=== PATIENT | female | born 1955 | race Caucasian/White ===

== ENCOUNTER 2016-12-08 12:00 | Outpatient (CLI) | payer MEDICAID | END 2016-12-08 12:01 | disposition home or self-care (01) | DX: M25.571 Pain in right ankle and joints of right foot (principal); M79.89 Other specified soft tissue disorders; M77.31 Calcaneal spur, right foot ==

== ENCOUNTER 2017-03-10 09:49 | Outpatient (CLI) | payer MEDICAID | END 2017-03-10 09:50 | disposition home or self-care (01) | DX: R53.83 Other fatigue (principal) ==

== ENCOUNTER 2017-09-05 15:25 | Outpatient (CLI) | payer MEDICAID ==
[2017-09-05 16:08] LABS: BASOPHILS % (AUTO) 0.3 %; EOSINOPHILS # (AUTO) 0.2 10^3/uL (0.0-0.7); EOSINOPHILS % (AUTO) 2.2 %; HCT - HEMATOCRIT 42.5 % (37.0-47.0); HGB - HEMOGLOBIN 14.4 g/dL (12.0-16.0); LYMPHOCYTES # (AUTO) 1.8 10^3/uL (1.5-3.5); LYMPHOCYTES % (AUTO) 25.3 %; MEAN CORPUSCULAR HEMOGLOBIN 29.8 pg (27.0-31.0); MEAN CORPUSCULAR HGB CONC 33.9 g/dL (32.0-36.0); MEAN CORPUSCULAR VOLUME 87.8 fL (81.0-99.0); MEAN PLATELET VOLUME 7.8 fL (7.9-10.8); MONOCYTES # (AUTO) 0.4 10^3/uL (0.0-1.0); MONOCYTES % (AUTO) 5.5 %; NEUTROPHILS # (AUTO) 4.8 10^3/uL (1.5-6.6); NEUTROPHILS % (AUTO) 66.7 %; RED BLOOD COUNT 4.84 10^6/uL (4.20-5.40); RED CELL DISTRIBUTION WIDTH 13.3 % (12.0-15.0); UNCORRECTED WHITE BLOOD COUNT 7.2 x10^3/uL; WHITE BLOOD COUNT 7.2 x10^3/uL (4.8-10.8)
[2017-09-05 16:38] LABS: ALBUMIN/GLOBULIN RATIO 1.8 (1.0-2.2); BILIRUBIN,TOTAL 0.6 mg/dL (0.2-1.0); CALCIUM 9.5 mg/dL (8.5-10.3); CREATININE 0.9 mg/dL (0.4-1.0); POTASSIUM 3.8 mmol/L (3.5-5.0); TOTAL PROTEIN 6.7 g/dL (6.7-8.2)
[2017-09-07 19:37] LABS: ANA SCREEN POSITIVE (NEGATIVE)
== END 2017-09-05 15:26 | disposition home or self-care (01) ==
LOC: LAB 15:25
PROVIDERS: ATTEND Nurse Practitioner Family
DX: M25.50 Pain in unspecified joint (principal)
CPT/HCPCS: 80053; 85025; 85651; 86038; 86140; 86430

== ENCOUNTER 2017-11-01 16:12 | Outpatient (CLI) | payer MEDICAID ==
--- NOTE | 2017-11-02 11:12 | XRAY Report ---
TWO-VIEW CHEST: 11/01/2017 COMPARISON: Frontal chest 09/10/2016. INDICATION: Shortness of breath. TECHNIQUE: Two views of the chest. FINDINGS: Clear lungs. No pneumothorax or pleural effusion. Mediastinum unremarkable. IMPRESSION: NEGATIVE CHEST. JOB #: [id number] EXT JOB #: [id number] [facility]
== END 2017-11-01 16:13 | disposition home or self-care (01) ==
LOC: DI.S 16:12
PROVIDERS: ATTEND Nurse Practitioner Family
DX: R06.02 Shortness of breath (principal)
CPT/HCPCS: 71020

== ENCOUNTER 2018-02-09 11:27 | Outpatient (CLI) | payer MEDICAID ==
--- NOTE | 2018-02-09 15:21 | XRAY Report ---
LUMBAR SPINE: 02/09/2018 COMPARISON: None. INDICATION: Low back pain, worsening about 3 months. TECHNIQUE: Two views. FINDINGS: Normal alignment. No evidence of acute fracture. There is mild narrowing of the L1-L2 and L4-L5 disk spaces. There is moderate narrowing of the L2-L3 disk space. There are small anterior osteophytes. Trace anterolisthesis of L4 upon L5 is favored to be degenerative. IMPRESSION: MILD TO MODERATE LUMBAR SPONDYLOSIS, DETAILED ABOVE. TD: 02/09/2018 15:21 [facility]
== END 2018-02-09 11:28 | disposition home or self-care (01) ==
LOC: DI.S 11:27
PROVIDERS: ATTEND Nurse Practitioner Family
DX: M54.5 Low back pain (principal); M47.896 Other spondylosis, lumbar region
CPT/HCPCS: 72100

== ENCOUNTER 2019-07-17 07:46 | Outpatient (CLI) | payer MEDICAID ==
[2019-07-17 08:37] LABS: BASOPHILS % (AUTO) 0.5 %; EOSINOPHILS # (AUTO) 0.2 10^3/uL (0.0-0.7); EOSINOPHILS % (AUTO) 2.5 %; HGB - HEMOGLOBIN 14.6 g/dL (12.0-16.0); LYMPHOCYTES # (AUTO) 1.8 10^3/uL (1.5-3.5); LYMPHOCYTES % (AUTO) 28.9 %; MEAN CORPUSCULAR HEMOGLOBIN 29.7 pg (27.0-31.0); MEAN CORPUSCULAR HGB CONC 32.5 g/dL (32.0-36.0); MEAN CORPUSCULAR VOLUME 91.3 fL (81.0-99.0); MEAN PLATELET VOLUME 9.4 fL (7.9-10.8); MONOCYTES # (AUTO) 0.5 10^3/uL (0.0-1.0); MONOCYTES % (AUTO) 7.4 %; NEUTROPHILS # (AUTO) 3.7 10^3/uL (1.5-6.6); NEUTROPHILS % (AUTO) 60.5 %; PLT - PLATELET COUNT 219 10^3/uL (130-450); RED BLOOD COUNT 4.92 10^6/uL (4.20-5.40); WHITE BLOOD COUNT 6.1 x10^3/uL (4.8-10.8)
[2019-07-17 08:57] LABS: ALBUMIN 4.4 g/dL (3.2-5.5); ALBUMIN/GLOBULIN RATIO 1.6 (1.0-2.2); ALKALINE PHOSPHATASE 67 IU/L (42-121); ALT ALANINE AMINOTRANSFERASE 27 IU/L (10-60); AST ASPARTATE AMINOTRANSFERASE 24 IU/L (10-42); BILIRUBIN,TOTAL 0.7 mg/dL (0.2-1.0); BUN - BLOOD UREA NITROGEN 14 mg/dL (6-20); CALCIUM 9.5 mg/dL (8.5-10.3); CARBON DIOXIDE - CO2 27 mmol/L (21-32); CHLORIDE 103 mmol/L (101-111); CHOL/HDL RATIO 5.4 (<4.4); CHOLESTEROL 275 mg/dL; CREATININE 0.9 mg/dL (0.4-1.0); GFR - MDRD 63 (>89); GLUCOSE 109 mg/dL (70-100); HDL CHOLESTEROL 51 mg/dL; LDL CHOLESTEROL,CALCULATED 188 mg/dL; LDL/HDL RATIO 3.7 (<4.4); SODIUM 140 mmol/L (135-145); TOTAL PROTEIN 7.1 g/dL (6.7-8.2); VLDL CHOLESTEROL 36 mg/dL
[2019-07-17 09:16] LABS: CRP - C-REACTIVE PROTEIN < 1.0 mg/dL (0-1.0)
--- NOTE | 2019-07-18 09:47 | XRAY Report ---
Reason: ARTHRITIS, KNEES, BILATERAL Procedure Date: 07/17/2019 Accession Number: [id number] / [id number] Procedure: XR - Knee 3 View BILAT CPT Code: FULL RESULT: EXAMS: 1. RIGHT KNEE RADIOGRAPHY 2. LEFT KNEE RADIOGRAPHY EXAM DATE:07/17/2019 08:09 AM. CLINICAL HISTORY:Arthritis, knees, bilateral. COMPARISON: None. TECHNIQUE: 3 views each. FINDINGS: Right Knee: Bones: No acute fracture or bony lesion. Multifocal degenerative osteophyte formation. Joints: Mild to moderate narrowing of the medial compartment and lateral aspect of the patellofemoral compartment. Superior patellar calcifications are again seen in part due to enthesophytes and calcifications along the suprapatellar joint space. Trace right knee effusion. Soft Tissues: Normal. No soft tissue swelling. Left Knee: Bones: No acute fracture or bony lesion. Multifocal degenerative osteophyte formation. Joints: Mild to moderate narrowing of the medial compartment and lateral aspect of the patellofemoral compartment. Superior patellar calcifications are again seen in part due to enthesophytes and calcifications along the suprapatellar joint space. Trace left knee effusion. Soft Tissues: Normal. No soft tissue swelling. IMPRESSION: 1. Mild to moderate degenerative changes of the right and left knee. RADIA
== END 2019-07-17 07:47 | disposition home or self-care (01) ==
LOC: DI 07:46
PROVIDERS: ATTEND Nurse Practitioner
DX: M17.0 Bilateral primary osteoarthritis of knee (principal); Z13.9 Encounter for screening, unspecified; M25.50 Pain in unspecified joint; G43.909 Migraine, unspecified, not intractable, without status migrainosus
CPT/HCPCS: 36415; 80053; 80061; 83721; 84443; 85025; 85651; 86140

== ENCOUNTER 2019-09-18 14:30 | Emergency (ER) | payer MEDICAID ==
--- NOTE | 2019-09-18 14:57 | ED Physician Documentation ---
PD HPI CHEST PAIN - Stated complaint Stated Complaint: CP - Chief complaint Chief Complaint: Cardiac - History obtained from History obtained from: Patient - History of Present Illness Timing - onset: Today (64-year-old woman without history of heart disease except for mitral valve prolapse and with really not much in the way of risk factors except for age for the last couple of days has had fleeting right sided jaw pain that is sharp radiating towards the ear. Usually happens at night and last for only seconds at a time. She is also had intermittent but also very short lasting sweats, they are gone by the time she is able to open the window. For the last 3 hours she is had positional sharp left-sided chest pain. The only present when laying flat. She denies pedal edema or calf pain. No cough or hemoptysis. No recent travel.) Review of Systems Ten Systems: 10 systems reviewed and negative Constitutional: reports: Reviewed and negative Cardiac: reports: Chest pain / pressure. 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 - Present Medications Home Medications: Ambulatory Orders Medication Instructions Recorded Confirmed No Known Home Medications 09/10/16 09/10/16 - Allergies Allergies/Adverse Reactions: Allergies Allergy/AdvReac Type Severity Reaction Status Date / Time Sulfa (Sulfonamide Allergy Unknown Verified 09/18/19 14:41 Antibiotics) tetracycline Allergy Unknown Verified 09/18/19 14:41 - Social History Does the pt smoke?: No Smoking Status: Never smoker Does the pt drink ETOH?: Yes Does the pt have substance abuse?: No - Family History Family history: reports: Non contributory - Immunizations Immunizations are current?: Yes - POLST Patient has POLST: No PD ED PE NORMAL - Vitals Vital signs reviewed: Yes - General General: Alert and oriented X 3, No acute distress - HEENT HEENT: PERRL, EOMI - Neck Neck: Supple, no meningeal sign, No bony TTP - Cardiac Cardiac: RRR, No murmur - Respiratory Respiratory: No respiratory distress, Clear bilaterally - Abdomen Abdomen: Normal bowel sounds, Soft, Non tender - Back Back: No CVA TTP, No spinal TTP - Derm Derm: Normal color, Warm and dry - Extremities Extremities: No edema, No calf tenderness / cord - Neuro Neuro: Alert and oriented X 3, Normal speech Results - Vitals Vitals: Vital Signs - 24 hr 09/18/19 09/18/19 09/18/19 14:37 14:47 16:18 Temperature 37.0 C Heart Rate 62 64 63 Respiratory 17 16 20 Rate Blood Pressure 144/70 H 142/87 H 119/65 O2 Saturation 99 99 98 Oxygen O2 Source Room air - EKG (time done) 1440 Rate: Rate (enter#) (59) Rhythm: NSR [place]: RAD Intervals: Normal [place] QRS: Normal Ischemia: Normal ST segments - Labs Labs: Laboratory Tests 09/18/19 09/18/19 09/18/19 15:03 15:03 15:03 WBC 7.5 RBC 4.78 Hgb 14.3 Hct 44.4 MCV 92.9 MCH 29.9 MCHC 32.2 RDW 12.8 Plt Count 209 MPV 9.3 Neut # (Auto) 4.9 Lymph # (Auto) 1.8 [place] # (Auto) 0.6 Eos # (Auto) 0.1 Baso # (Auto) 0.0 Absolute Nucleated RBC 0.00 Nucleated RBC % 0.0 D-Dimer < 200.0 L Sodium 140 Potassium 4.0 Chloride 105 Carbon Dioxide 27 Anion Gap 8.0 BUN 20 Creatinine 1.1 H Estimated GFR (MDRD) 50 L Glucose 99 Calcium 9.8 Total Bilirubin 0.8 AST 22 ALT 21 Alkaline Phosphatase 66 Troponin I High Sens Total Protein 7.3 Albumin 4.5 Globulin 2.8 Albumin/Globulin Ratio 1.6 Lipase 28 09/18/19 09/18/19 15:03 17:10 WBC RBC Hgb Hct MCV MCH MCHC RDW Plt Count MPV Neut # (Auto) Lymph # (Auto) [place] # (Auto) Eos # (Auto) Baso # (Auto) Absolute Nucleated RBC Nucleated RBC % D-Dimer Sodium Potassium Chloride Carbon Dioxide Anion Gap BUN Creatinine Estimated GFR (MDRD) Glucose Calcium Total Bilirubin AST ALT Alkaline Phosphatase Troponin I High Sens < 2.3 L < 2.3 L Total Protein Albumin Globulin Albumin/Globulin Ratio Lipase PD MEDICAL DECISION MAKING - ED course ED course: 64-year-old woman with very atypical chest pain, EKG is nonischemic and delta troponin was negative. Departure - Departure Disposition: 01 Home, Self Care Clinical Impression: Atypical chest pain Condition: Good Record reviewed to determine appropriate education?: Yes Instructions: ED Chest Pain Atypical Unkn Cause Comments: Follow-up with your doctor for consideration for stress testing, return for new worsening or changing symptoms.
--- NOTE | 2019-09-18 15:26 | XRAY Report ---
Reason: chest pain Procedure Date: 09/18/2019 Accession Number: [id number] / [id number] Procedure: XR - Chest 1 View X-Ray CPT Code: 47089 FULL RESULT: EXAM: CHEST RADIOGRAPHY EXAM DATE: 09/18/2019 03:04 PM. CLINICAL HISTORY: Chest pain. COMPARISON: CHEST 2 VIEW PA/LAT 11/01/2017 4:27 PM. TECHNIQUE: 1 view. FINDINGS: Lungs/Pleura: No focal opacities evident. No pleural effusion. No pneumothorax. Mediastinum: Within exam limitations, the cardiomediastinal contour is normal. Other: None. IMPRESSION: Normal single view chest. RADIA
[2019-09-18 15:28] LABS: BASOPHILS % (AUTO) 0.4 %; EOSINOPHILS # (AUTO) 0.1 10^3/uL (0.0-0.7); EOSINOPHILS % (AUTO) 1.7 %; HGB - HEMOGLOBIN 14.3 g/dL (12.0-16.0); LYMPHOCYTES # (AUTO) 1.8 10^3/uL (1.5-3.5); LYMPHOCYTES % (AUTO) 24.3 %; MEAN CORPUSCULAR HEMOGLOBIN 29.9 pg (27.0-31.0); MEAN CORPUSCULAR HGB CONC 32.2 g/dL (32.0-36.0); MEAN CORPUSCULAR VOLUME 92.9 fL (81.0-99.0); MEAN PLATELET VOLUME 9.3 fL (7.9-10.8); MONOCYTES # (AUTO) 0.6 10^3/uL (0.0-1.0); MONOCYTES % (AUTO) 7.6 %; NEUTROPHILS # (AUTO) 4.9 10^3/uL (1.5-6.6); NEUTROPHILS % (AUTO) 65.6 %; PLT - PLATELET COUNT 209 10^3/uL (130-450); RED BLOOD COUNT 4.78 10^6/uL (4.20-5.40); RED CELL DISTRIBUTION WIDTH 12.8 % (12.0-15.0); WHITE BLOOD COUNT 7.5 x10^3/uL (4.8-10.8)
[2019-09-18 15:41] LABS: ALBUMIN 4.5 g/dL (3.2-5.5); ALBUMIN/GLOBULIN RATIO 1.6 (1.0-2.2); BILIRUBIN,TOTAL 0.8 mg/dL (0.2-1.0); CALCIUM 9.8 mg/dL (8.5-10.3); CREATININE 1.1 mg/dL (0.4-1.0); TOTAL PROTEIN 7.3 g/dL (6.7-8.2)
[2019-09-18 18:01] VITALS: BP 112/95
== END 2019-09-18 18:08 | disposition home or self-care (01) ==
LOC: ED 14:30
DX: R07.89 Other chest pain (principal); I34.1 Nonrheumatic mitral (valve) prolapse
CPT/HCPCS: 36415; 71045; 80053; 83690; 84484; 85025; 85379; 93005; 99284

== ENCOUNTER 2020-04-18 11:04 | Emergency (ER) | payer MEDICARE, MEDICAID ==
--- NOTE | 2020-04-18 11:13 | ED Physician Documentation ---
PD HPI BACK PAIN - History obtained from History obtained from: Patient - History of Present Illness Timing - onset: How many weeks ago (1) Timing - duration: Weeks (1) Timing - details: Gradual onset, Still present Location: Lower, Left Quality: Pain, Spasm, Aching, Similar to prior episodes (yhough more persistent in the location.). No: Sharp, Tearing Improves with: Rest, Position Worsened by: Movement, Twisting Contributing factors: Twisting. No: Lifting, Trauma Similar symptoms before: Diagnosis (low back pain episodes with left sciatica at times in the past. No chronic daily pains. No noted injury for current flare up.) Recently seen: Not recently seen Review of Systems Constitutional: denies: Fever, Chills, Myalgias Nose: denies: Rhinorrhea / runny nose, Congestion Throat: denies: Sore throat Respiratory: denies: Cough GI: denies: Nausea, Vomiting, Diarrhea : denies: Dysuria, Frequency, Hematuria Skin: denies: Rash, Lesions Neurologic: reports: Numbness (at times down back of leg.). 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 - Present Medications Home Medications: Ambulatory Orders Medication Instructions Recorded Confirmed Naproxen 375 mg PO BID #20 tablet 04/18/20 Oxycodone HCl/Acetaminophen 1 each PO Q6H PRN #20 tablet 04/18/20 [Percocet 5-325 mg Tablet] Tizanidine HCl 4 mg PO TID PRN #25 capsule 04/18/20 dexAMETHasone [Decadron] 4 mg PO DAILY #5 tablet 04/18/20 - Allergies Allergies/Adverse Reactions: Allergies Allergy/AdvReac Type Severity Reaction Status Date / Time Sulfa (Sulfonamide Allergy Unknown Verified 04/18/20 11:06 Antibiotics) tetracycline Allergy Unknown Verified 04/18/20 11:06 - Social History Does the pt smoke?: No Smoking Status: Never smoker Does the pt drink ETOH?: Yes Does the pt have substance abuse?: No - Immunizations Immunizations are current?: Yes - POLST Patient has POLST: No PD ED PE NORMAL - Vitals Vital signs reviewed: Yes - General General: Alert and oriented X 3, Well developed/nourished, Other (appears uncomfortable, leaning foreward to the right. Guarding ROM of the low back, particularly the left. ) - Cardiac Cardiac: RRR, No murmur - Respiratory Respiratory: Clear bilaterally - Abdomen Abdomen: Normal bowel sounds, Soft, Non tender, Non distended - Rectal Rectal: Deferred - Back Back: No CVA TTP, No spinal TTP (but is tender lateral left lower lumbar above the SI joint area. No redness nor rash. Palpation there does trigger pain.) - Derm Derm: Normal color, Warm and dry - Extremities Extremities: No tenderness to palpate, Normal ROM s pain, No edema, No calf tenderness / cord - Neuro Neuro: Alert and oriented X 3, No motor deficit, Normal speech Results - Vitals Vitals: Vital Signs - 24 hr 04/18/20 04/18/20 04/18/20 11:07 12:37 15:12 Temperature 36.3 C L 36.3 C L Heart Rate 67 62 57 L Respiratory 18 16 18 Rate Blood Pressure 153/91 H 109/58 L 124/59 L O2 Saturation 97 93 94 Oxygen O2 Source Room air - Rads (name of study) lumbar CT Radiology: Prelim report reviewed, See rad report PD MEDICAL DECISION MAKING - ED course Complexity details: re-evaluated patient (she says her pain is now much improved with added med. States her leg is feeling better with regard to the numbness and feeling of weakness. this would be good time interval for the lido to wear off. CT ;umbar without significant finding to account for symptoms. ), considered differential (seems like low back pain without red flags. However she got IM meds and I also did trigger point muscle injection left lower back. She states pain only mildly better and now she is feeling numbness and weakness of left leg. Still normal reflex. However, abrupt change concerning for structural process. Consider some nerve block inadvertently with the muscle trigger point.), d/w patient ED course: Trigger point injection left low back muscle above SI area with Kenalog and LIdo. in lateral muscle area. Departure - Departure Disposition: 01 Home, Self Care Clinical Impression: Low back pain Qualifiers: Chronicity: acute Back pain laterality: left Sciatica presence: with sciatica Sciatica laterality: sciatica of left side Qualified Code(s): M54.42 - Lumbago with sciatica, left side Condition: Stable Record reviewed to determine appropriate education?: Yes Instructions: ED Low Back Pain Injury, ED Sciatica Follow-Up: Leigh Rai ARNP, AMBULANCE ASSISTANT-C [Primary Care Provider] - Prescriptions: dexAMETHasone [Decadron] 4 mg PO DAILY #5 tablet Naproxen 375 mg PO BID #20 tablet Oxycodone HCl/Acetaminophen [Percocet 5-325 mg Tablet] 1 each PO Q6H PRN #20 tablet PRN Reason: pain Tizanidine HCl 4 mg PO TID PRN #25 capsule PRN Reason: Spasms Comments: Heat and gentle stretching for the low back to improve the muscle stiffness and try to take pressure off the nerve roots. You can do physical treatments such as massage and chiropractic and those help her low back as well. Use anti-inflammatories of both naproxen and Decadron as directed regularly. Add tizanidine muscle relaxant for stiffness and spasm. To that add Tylenol every 6 hours if needed for pain or oxycodone if needed for worse pain. Recheck if not improved well over the next several days to a week. Follow-up with your primary care regarding other treatments or medications or potential physical therapy. Discharge Date/Time: 04/18/20 15:17
[2020-04-18] MEDS ORDERED: KETOROLAC 30 MG/ML VIAL IM STA (11:29)
[2020-04-18] MEDS ORDERED: ACETAMINOPHEN 325 MG TABLET PO STA (11:29)
[2020-04-18] MEDS ORDERED: HYDROmorphone 2 MG/ML VIAL IM STA (11:29)
[2020-04-18] MEDS ORDERED: TRIAMCINOLONE 40 MG/ML VIAL IM STA (11:29)
[2020-04-18] MEDS ORDERED: methocarbamoL 500 MG TABLET PO STA (11:29)
[2020-04-18] MEDS ORDERED: oxyCODONE 5 MG TABLET PO STA (13:29)
--- NOTE | 2020-04-18 14:15 | CT Report ---
Reason: low back pain; leg numb Procedure Date: 04/18/2020 Accession Number: [id number] / [id number] Procedure: CT - LUMBAR SPINE WO CPT Code: Final Report FULL RESULT: EXAM: CT LUMBAR SPINE WITHOUT CONTRAST EXAM DATE: 04/18/2020 01:56 PM. CLINICAL HISTORY: Low back pain; leg numb. COMPARISONS: None. TECHNIQUE: Thin-section axial images were acquired of the lumbar spine from T12 to S1 without contrast. Post-processing: Coronal and sagittal reformats. Other: None. In accordance with CT protocol optimization, one or more of the following dose reduction techniques were utilized for this exam: automated exposure control, adjustment of mA and/or KV based on patient size, or use of iterative reconstructive technique. FINDINGS: Alignment: Gentle convex to the left curvature of the mid lumbar spine. 0.4 cm of grade 1 L4 on L5 anterolisthesis is likely degenerative in origin. Bones: Five [id number] lumbar vertebral bodies are present. No fractures or bone lesions. Disk Levels/Facets: T12-L1: Mild disk narrowing. No significant facet arthropathy. No significant central canal or foraminal stenosis. L1-L2: Moderate disk narrowing. No significant facet arthropathy. No significant central canal or foraminal stenosis. L2-L3: Moderate disk narrowing with prominent disk osteophyte complex. Mild bilateral facet arthropathy. No significant central canal or foraminal stenosis. L3-L4: Mild bilateral facet arthropathy. Mild disk narrowing. No significant central canal or foraminal stenosis. L4-L5: Small disk bulge. Moderate bilateral facet arthropathy. No significant central canal or foraminal stenosis. L5-S1: Mild disk narrowing. Mild right facet arthropathy. No significant central canal or foraminal stenosis. Musculature: Normal. No fatty atrophy. Other: The visualized retroperitoneum is unremarkable. Small hiatal hernia. Colonic diverticula are noted. No paraspinal hematoma is present. IMPRESSION: 1. No acute fracture. 2. Grade 1 L4 on L5 anterolisthesis is likely degenerative in origin. Mild levoscoliosis. 3. Multilevel degenerative disk and facet arthropathy identified. RADIA
[2020-04-18 15:13] VITALS: BP 124/59
== END 2020-04-18 15:17 | disposition home or self-care (01) ==
LOC: ED 11:04
DX: M54.42 Lumbago with sciatica, left side (principal)
CPT/HCPCS: 20552; 72131; 96372; 99284; A9270; J1170

== ENCOUNTER 2020-09-10 15:34 | Outpatient (CLI) | payer MEDICARE, MEDICAID ==
--- NOTE | 2020-09-10 16:46 | DEXA Report ---
PROCEDURE: Dexa Spine and/or Hip INDICATIONS: POST MENOPAUSAL TECHNIQUE: Dual energy x-ray absorptiometry (DXA) was performed on a [employer] System. Regions measur ed are the AP Spine, femoral neck, and if needed forearm. COMPARISON: None. FINDINGS: Lumbar Spine: Bone Mineral Density 1.403 g/cm/cm,T score 1.9, normal Left Femoral Neck: Bone Mineral Density 0.917 g/cm/cm, T score -0.7, normal (T score greater or equal to -1.0: NORMAL) (T score from -1.1 to -2.4: OSTEOPENIA) (T score less than or equal to -2.5 to: OSTEOPOROSIS) Impression: Normal bone mineral density Patients with diagnosis of osteoporosis or osteopenia should have regular bone mineral density assess ment. For those eligible for Medicare, routine testing is allowed once every 2 years. Testing frequ ency can be increased for patients who have rapidly progressing disease or for those who are receivin g medical therapy to restore bone mass. Reviewed by: Jake Luu MD on 09/10/2020 4:45 PM PDT Approved by: Jake Luu MD on 09/10/2020 4:45 PM PDT Station ID: [id number]
== END 2020-09-10 15:35 | disposition home or self-care (01) ==
LOC: DI 15:34
PROVIDERS: ATTEND Nurse Practitioner Family
DX: Z13.820 Encounter for screening for osteoporosis (principal); Z78.0 Asymptomatic menopausal state
CPT/HCPCS: 77080

== ENCOUNTER 2021-05-26 08:24 | Outpatient (CLI) | payer OTHER, MEDICARE, MEDICAID ==
--- NOTE | 2021-05-26 10:33 | XRAY Report ---
PROCEDURE: Foot 3 View LT INDICATIONS: PARESTHESIA OF SKIN TECHNIQUE: 3 views of the foot were acquired. COMPARISON: None FINDINGS: Bones: No fractures or dislocations. No suspicious bony lesions. Small plantar calcaneal bone spur. Soft tissues: No tibiotalar joint effusion. Achilles tendon appears normal. IMPRESSION: No acute osseous lesion. If there are persistent symptoms or continued clinical concern for pathology , then repeat plain film radiographs (7-10 days) or advanced imaging (CT, MR, bone scan) should be co nsidered for further evaluation. Reviewed by: Shelly Cruz MD, PhD on 05/26/2021 10:32 AM PDT Approved by: Shelly Cruz MD, PhD on 05/26/2021 10:32 AM PDT Station ID: [id number]
[2021-05-26 15:13] LABS: ALBUMIN 4.5 g/dL (3.2-5.5); ALBUMIN/GLOBULIN RATIO 1.9 (1.0-2.2); ALKALINE PHOSPHATASE 70 IU/L (42-121); ALT ALANINE AMINOTRANSFERASE 18 IU/L (10-60); AST ASPARTATE AMINOTRANSFERASE 20 IU/L (10-42); BILIRUBIN,TOTAL 0.8 mg/dL (0.2-1.0); BUN - BLOOD UREA NITROGEN 22 mg/dL (6-20); CALCIUM 9.4 mg/dL (8.5-10.3); CARBON DIOXIDE - CO2 27 mmol/L (21-32); CHLORIDE 103 mmol/L (101-111); CHOL/HDL RATIO 5.5 (<4.4); CHOLESTEROL 279 mg/dL; CREATININE 0.9 mg/dL (0.4-1.0); GFR - MDRD 63 (>89); GLUCOSE 101 mg/dL (70-100); HDL CHOLESTEROL 51 mg/dL; LDL CHOLESTEROL,CALCULATED 199 mg/dL; LDL/HDL RATIO 3.9 (<4.4); POTASSIUM 4.6 mmol/L (3.5-5.0); SODIUM 137 mmol/L (135-145); TOTAL PROTEIN 6.9 g/dL (6.7-8.2); TRIGLYCERIDES 144 mg/dL; VLDL CHOLESTEROL 29 mg/dL
== END 2021-05-26 08:25 | disposition home or self-care (01) ==
LOC: DI.S 08:24
PROVIDERS: ATTEND Nurse Practitioner Family
DX: R20.2 Paresthesia of skin (principal); E78.2 Mixed hyperlipidemia
CPT/HCPCS: 36415; 80053; 80061; 83721

== ENCOUNTER 2023-04-14 09:52 | Emergency (ER) | payer OTHER ==
[2023-04-14 10:20] LABS: BASOPHILS % (AUTO) 0.6 %; EOSINOPHILS # (AUTO) 0.1 10^3/uL (0.0-0.7); EOSINOPHILS % (AUTO) 2.2 %; HCT - HEMATOCRIT 44.9 % (37.0-47.0); HGB - HEMOGLOBIN 14.2 g/dL (12.0-16.0); LYMPHOCYTES # (AUTO) 1.3 10^3/uL (1.5-3.5); MEAN CORPUSCULAR HEMOGLOBIN 28.5 pg (27.0-31.0); MEAN CORPUSCULAR HGB CONC 31.6 g/dL (32.0-36.0); MEAN CORPUSCULAR VOLUME 90.2 fL (81.0-99.0); MEAN PLATELET VOLUME 9.4 fL (7.9-10.8); MONOCYTES # (AUTO) 0.4 10^3/uL (0.0-1.0); MONOCYTES % (AUTO) 8.5 %; NEUTROPHILS # (AUTO) 3.1 10^3/uL (1.5-6.6); NEUTROPHILS % (AUTO) 62.5 %; PLT - PLATELET COUNT 152 10^3/uL (130-450); RED BLOOD COUNT 4.98 10^6/uL (4.20-5.40); RED CELL DISTRIBUTION WIDTH 12.9 % (12.0-15.0)
--- NOTE | 2023-04-14 10:20 | XRAY Report ---
PROCEDURE: Chest 1 View X-Ray INDICATIONS: Chest pain TECHNIQUE: One view of the chest was acquired. COMPARISON: None. FINDINGS: Surgical changes and devices: None. Lungs and pleura: No pleural effusions or pneumothorax. Lungs are clear. Mediastinum: Mediastinal contours appear normal. Heart size is normal. Bones and chest wall: No suspicious bony lesions. Overlying soft tissues appear unremarkable. IMPRESSION: No acute cardiopulmonary process. Reviewed by: Lamont Hammond on 04/14/2023 10:19 AM PDT Approved by: Lamont Hammond on 04/14/2023 10:19 AM PDT Station ID: [id number]
--- NOTE | 2023-04-14 10:32 | ED Physician Documentation ---
PD HPI CHEST PAIN - Stated complaint Stated Complaint: CHEST PX,NAUSEA,WEAKNESS - Chief complaint Chief Complaint: Cardiac - History obtained from History obtained from: Patient - History of Present Illness Timing - onset: Yesterday Timing - onset during: Light activity Timing - duration: Hours (12) Timing - details: Abrupt onset, Still present, Waxing and waning. No: Intermittant Quality: Aching, Sharp, Pain. No: Pressure, Tightness Location: Left chest (under the left breast. No rash. No back pain. No abd pain.) Worsened by: Movement. No: Inspiration, Eating Associated symptoms: Nausea, Feeling faint / dizzy. No: Shortness of air, Vomiting Similar symptoms before: Has not had sx before Review of Systems Constitutional: denies: Fever, Chills Nose: denies: Rhinorrhea / runny nose, Congestion Throat: denies: Sore throat Cardiac: reports: Chest pain / pressure. denies: Palpitations, Pedal edema, Calf pain Respiratory: denies: Dyspnea, Cough GI: reports: Nausea. denies: Abdominal Pain, Vomiting, Diarrhea Skin: denies: Rash, Lesions Musculoskeletal: denies: Extremity swelling PD PAST MEDICAL HISTORY - Past Medical History Past Medical History: Yes Cardiovascular: Murmur (since childhood. 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 - Present Medications Home Medications: Ambulatory Orders Medication Instructions Recorded Confirmed Naproxen 375 mg PO BID #20 tablet 04/18/20 Oxycodone HCl/Acetaminophen 1 each PO Q6H PRN #20 tablet 04/18/20 [Percocet 5-325 mg Tablet] Tizanidine HCl 4 mg PO TID PRN #25 capsule 04/18/20 dexAMETHasone [Decadron] 4 mg PO DAILY #5 tablet 04/18/20 - Allergies Allergies/Adverse Reactions: Allergies Allergy/AdvReac Type Severity Reaction Status Date / Time Sulfa (Sulfonamide Allergy Unknown Verified 04/14/23 10:01 Antibiotics) tetracycline Allergy Unknown Verified 04/14/23 10:01 - Social History Does the pt smoke?: No Smoking Status: Never smoker Does the pt drink ETOH?: Yes Does the pt have substance abuse?: No - Immunizations Immunizations are current?: Yes - POLST Patient has POLST: No PD ED PE NORMAL - Vitals Vital signs reviewed: Yes - General General: Alert and oriented X 3, No acute distress, Well developed/nourished - Neck Neck: Supple, no meningeal sign, No adenopathy - Cardiac Cardiac: RRR, No rub, Other (1/6 murmur left chest radiating to back and not to neck. Seems likely c/w mitral regurg. ) - Respiratory Respiratory: No respiratory distress, Other (tenderness of chest wall under left lateral breast. No rash nor sores. ) - Abdomen Abdomen: Normal bowel sounds, Soft Results - Vitals Vitals: Oxygen O2 Source Room air - EKG (time done) 10"02 EKG releavant findings:: EKG personally interpreted by author of this note. Relevant findings are: Rate: Rate (enter#) (59) Rhythm: NSR [place]: Normal Intervals: Normal [place] QRS: Normal Ischemia: Normal ST segments. No: ST elevation c/w ischemia, ST depression - Labs Labs: Laboratory Tests 04/14/23 04/14/23 04/14/23 10:15 10:15 10:15 WBC 5.0 RBC 4.98 Hgb 14.2 Hct 44.9 MCV 90.2 MCH 28.5 MCHC 31.6 L RDW 12.9 Plt Count 152 MPV 9.4 Neut # (Auto) 3.1 Lymph # (Auto) 1.3 L [place] # (Auto) 0.4 Eos # (Auto) 0.1 Baso # (Auto) 0.0 Absolute Nucleated RBC 0.00 Nucleated RBC % 0.0 Sodium 141 Potassium 3.9 Chloride 103 Carbon Dioxide 26 Anion Gap 12.0 BUN 17 Creatinine 0.7 Estimated GFR (MDRD) 83 L Glucose 78 Calcium 9.2 Total Bilirubin 0.8 AST 22 ALT 20 Alkaline Phosphatase 63 Troponin I High Sens 2.7 B-Natriuretic Peptide Total Protein 7.1 Albumin 4.2 Globulin 2.9 Albumin/Globulin Ratio 1.4 Lipase 31 04/14/23 10:17 WBC RBC Hgb Hct MCV MCH MCHC RDW Plt Count MPV Neut # (Auto) Lymph # (Auto) [place] # (Auto) Eos # (Auto) Baso # (Auto) Absolute Nucleated RBC Nucleated RBC % Sodium Potassium Chloride Carbon Dioxide Anion Gap BUN Creatinine Estimated GFR (MDRD) Glucose Calcium Total Bilirubin AST ALT Alkaline Phosphatase Troponin I High Sens B-Natriuretic Peptide 61 Total Protein Albumin Globulin Albumin/Globulin Ratio Lipase - Rads (name of study) chest xray Relevant Findings:: Prelim report reviewed, EMP independent interpretation of test (no acute findings.), See rad report PD Medical Decision Making - ED course Complexity details: reviewed results, considered differential (having local sharper chest pain under left breast. No rash nor sores. No URI sympomts. no injury. Has normal CXR, ECG and troponin. No signs of cardiopulmonary causes by testing, history and exam. Negative risk for PE. Seems likley myofascial chest pain. ), d/w patient Departure - Departure Disposition: Home, Self Care Clinical Impression: Left-sided chest pain, Heart murmur Clinical Impression: (Ruled Out): Myocardial infarction Condition: Stable Record reviewed to determine appropriate education?: Yes Instructions: ED Chest Pain Atypical Unkn Cause Comments: No signs of abnormality of the heart or lungs. No signs of heart attack. At this point is not clear the cause of your symptoms. Consideration would be some reflux or stomach type pain. I would suggest acid reducing medicine such as famotidine once or twice daily for the next 10 to 14 days in case that is the problem. Otherwise Tylenol every 4-6 hours if needed for pains. You could be a muscular type pain as well. Recheck if not improved over the next few days. Return if worsening or other symptoms develop. Discharge Date/Time: 04/14/23 11:30
[2023-04-14 10:35] LABS: ALBUMIN 4.2 g/dL (3.2-5.5); ALBUMIN/GLOBULIN RATIO 1.4 (1.0-2.2); BILIRUBIN,TOTAL 0.8 mg/dL (0.2-1.0); CALCIUM 9.2 mg/dL (8.5-10.3); CREATININE 0.7 mg/dL (0.4-1.0); POTASSIUM 3.9 mmol/L (3.5-5.0); TOTAL PROTEIN 7.1 g/dL (6.7-8.2)
[2023-04-14] MEDS ORDERED: FAMOTIDINE 20 MG TABLET PO STA (10:49)
[2023-04-14] MEDS ORDERED: MAG HYDROX/AL HYDROX/SIMETH 30 ML UDC PO STA (10:49)
[2023-04-14 11:08] VITALS: BP 120/58
== END 2023-04-14 11:30 | disposition home or self-care (01) ==
LOC: ED 09:52
DX: R07.9 Chest pain, unspecified (principal); R01.1 Cardiac murmur, unspecified
CPT/HCPCS: 36415; 71045; 80053; 83690; 83880; 84484; 85025; 93005; 99283; 99284; A9270